=== PATIENT | female | born 1945 | race Caucasian/White ===

== ENCOUNTER 2023-06-14 11:00 | Inpatient (IN) | payer OTHER ==
[2023-06-14] MEDS ORDERED: methylPREDNISolone NA SUCC 125 MG/2 ML VIAL ONE (11:38)
[2023-06-14] MEDS ORDERED: FAMOTIDINE 20 MG/50 ML IVPB 20 MG/50 ML MG IVPB ONE (11:38)
[2023-06-14] MEDS ORDERED: VANCOMYCIN 1,000 MG VIAL (RESTRICTED TO ID ONLY) ONE (11:39)
[2023-06-14 11:56] LABS: HEMOGLOBIN 13.6 G/dL (10.7-15.3); MCH 29.2 pg (25.7-33.7); MEAN CELL VOLUME 85.9 fl (80-96); MEAN PLT VOLUME 7.9 fl (7.5-11.1); PLATELET COUNT 336.8 10^3/uL (134-434); RBC 4.66 10^6/uL (3.60-5.2); RDW 15.3 % (11.6-15.6); WHITE BLOOD COUNT 8.6 10^3/uL (4.0-10.8)
[2023-06-14] MEDS: methylPREDNISolone NA SUCC 125 MG/2 ML VIAL IVPUSH ONE (12:00)
[2023-06-14 12:07] LABS: ALBUMIN 3.8 g/dl (3.4-5.0); BILIRUBIN,TOTAL 0.6 mg/dl (0.2-1); CALCIUM 9.9 mg/dl (8.5-10.1); CREATININE 0.7 mg/dl (0.6-1.3); POTASSIUM 4.1 mmol/L (3.5-5.1); TOT PROT 7.5 g/dl (6.4-8.2)
[2023-06-14] MEDS: FAMOTIDINE 20 MG/50 ML IVPB 20 MG/50 ML MG IVPB ONE (12:10)
[2023-06-14 12:27] LABS: PLATELET ESTIMATE SLT INCREASE
[2023-06-14] MEDS: VANCOMYCIN 1,000 MG in DEXTROSE 5%-WATER - 250 ML IVPB ONE (12:35)
[2023-06-14] MEDS: DEXAMETHASONE SOD PHOSPHATE 10 MG/1 ML VIAL IVPUSH ONE (12:39)
[2023-06-14 14:06] LABS: LACTIC ACID 2.2 mmol/L (0.4-2.0)
[2023-06-14 14:28] LABS: ERYTHROCYTE SEDIMENTATION RATE 42 mm/hr (0-30)
[2023-06-14] MEDS: SODIUM CHLORIDE 0.9% 500 ML INFUS.BAG IV ONE (14:35)
[2023-06-14] MEDS ORDERED: LORATADINE 10 MG TABLET ONE (18:18)
[2023-06-14] MEDS: MONTELUKAST NA 10 MG TABLET PO SCH (18:39)
[2023-06-14] MEDS: LORATADINE 10 MG TABLET PO SCH (18:39)
[2023-06-14] MEDS: TRIAMCINOLONE ACET 0.1% OINT 15 GM TUBE TP SCH (18:47)
[2023-06-14 19:00] VITALS: RESP 18
[2023-06-15 00:10] VITALS: BMI 45.3
[2023-06-15] MEDS: CHOLECALCIFEROL (VIT D3) 1,000 UNIT (25 MCG) TABLET PO SCH (13:08)
[2023-06-15] MEDS: LOSARTAN POTASSIUM 50 MG TABLET PO SCH (13:08)
[2023-06-15] MEDS: HYDROCHLOROTHIAZIDE 25 MG TABLET (FP) PO SCH (13:08)
[2023-06-15] MEDS: amLODIPine BESYLATE 5 MG TABLET (FP) PO SCH (13:08)
[2023-06-15] MEDS: AZTREONAM 1 GM in DEXTROSE 5%-WATER - 50 ML IVPB ONE (13:09)
[2023-06-15] MEDS: MINERAL OIL/PET HY-PHL TOPICAL OINTMENT 454 GM JAR TP SCH (13:09)
[2023-06-15] MEDS: INSULIN (LEVEMIR) 100 UNITS/ML UNITS SQ SCH (13:09)
[2023-06-15] MEDS: INSULIN ASPART SLIDING SCALE (NOVOLOG) 1 VIAL SQ SCH (13:10)
[2023-06-15] MEDS: ACETAMINOPHEN 325 MG TABLET (FP) PO PRN (15:50)
[2023-06-15] MEDS: HEPARIN NA (PORCINE) 5,000 UNITS/ML 1ML VIAL SQ SCH (15:51)
[2023-06-15] MEDS ORDERED: INSULIN (NOVOLOG) ASPART 100 UNITS/ML 10ML VIAL ONE ×2 (16:53→21:23)
[2023-06-15] MEDS: VANCOMYCIN PREMIX 1.5 GM 1,500 MG/300 ML BAG IVPB SCH (17:38)
[2023-06-16] MEDS: LEVOTHYROXINE NA 75 MCG TABLET (FP) PO SCH (06:03)
[2023-06-16] MEDS ORDERED: INSULIN (NOVOLOG) ASPART 100 UNITS/ML 10ML VIAL ONE ×2 (06:14→10:56)
[2023-06-16 09:26] LABS: BASO % 0.7 % (0-2.0); EOS % 7.4 % (0-4.5); HEMOGLOBIN 12.5 GM/dL (10.7-15.3); LYMPH % 28.3 % (8-40); MCH 28.2 pg (25.7-33.7); MCHC 33.9 g/dl (32.0-36.0); MEAN CELL VOLUME 83.4 fl (80-96); MEAN PLT VOLUME 7.7 fl (7.5-11.1); MONO % 8.8 % (3.8-10.2); NEUT % 54.8 % (42.8-82.8); PLATELET COUNT 402 10^3/uL (134-434); RBC 4.43 M/mm3 (3.60-5.2); WHITE BLOOD COUNT 7.8 K/mm3 (4.0-10.0)
[2023-06-16 09:51] LABS: POTASSIUM 3.9 mmol/L (3.5-5.1)
[2023-06-16 09:57] LABS: CREATININE 0.7 mg/dL (0.55-1.3)
[2023-06-16 09:59] LABS: ALBUMIN 3.2 g/dl (3.4-5.0); BILIRUBIN,TOTAL 0.5 mg/dL (0.2-1); TOT PROT 7.4 g/dl (6.4-8.2)
[2023-06-16 10:00] LABS: BLOOD UREA NITROGEN 17.5 mg/dL (7-18)
[2023-06-16 10:08] LABS: CALCIUM 9.5 mg/dL (8.5-10.1)
[2023-06-17 07:37] LABS: BASO % 0.9 % (0-2.0); EOS % 9.4 % (0-4.5); HEMATOCRIT 38.5 % (32.4-45.2); HEMOGLOBIN 12.4 GM/dL (10.7-15.3); MCH 27.3 pg (25.7-33.7); MCHC 32.3 g/dl (32.0-36.0); MEAN CELL VOLUME 84.5 fl (80-96); MEAN PLT VOLUME 7.5 fl (7.5-11.1); MONO % 9.8 % (3.8-10.2); NEUT % 45.9 % (42.8-82.8); PLATELET COUNT 376 10^3/uL (134-434); RBC 4.55 M/mm3 (3.60-5.2); RDW 15.5 % (11.6-15.6); WHITE BLOOD COUNT 7.1 K/mm3 (4.0-10.0)
[2023-06-17 08:01] LABS: BLOOD UREA NITROGEN 15.7 mg/dL (7-18); CALCIUM 9.6 mg/dL (8.5-10.1)
[2023-06-17 08:02] LABS: CREATININE 0.6 mg/dL (0.55-1.3)
[2023-06-17 08:03] LABS: BILIRUBIN,TOTAL 0.4 mg/dL (0.2-1); TOT PROT 7.1 g/dl (6.4-8.2)
[2023-06-17 10:20] VITALS: BP 123/64; PULSE 69; TEMP 97.7
[2023-06-17] MEDS ORDERED: DOXYCYCLINE HYCLATE 100 MG CAPSULE PO SCH (18:00)
== END 2023-06-17 13:30 | disposition home or self-care (01) | DRG 607 ==
LOC: FER 11:00 → UNDOADMIN 15:05 → FM/S 15:05 → J7W 19:20
PROVIDERS: ATTEND Nurse Practitioner Acute Care
DX: L27.0 Generalized skin eruption due to drugs and medicaments taken internally (principal); Z68.42 Body mass index [BMI] 45.0-49.9, adult; L03.116 Cellulitis of left lower limb; L03.115 Cellulitis of right lower limb; I10 Essential (primary) hypertension; E78.5 Hyperlipidemia, unspecified; E11.9 Type 2 diabetes mellitus without complications; E03.9 Hypothyroidism, unspecified; I87.2 Venous insufficiency (chronic) (peripheral); E66.01 Morbid (severe) obesity due to excess calories; T36.1X5A Adverse effect of cephalosporins and other beta-lactam antibiotics, initial encounter
CPT/HCPCS: 0241U-QW; 36415; 80053; 82962; 83605; 83880; 84439; 84443; 85025; 85027; 85651; 86140; 87040; 93306-TC; 93970-TC; 99285-25; G0480; J1644